=== PATIENT | male | born 1955 | race Caucasian/White ===

== ENCOUNTER 2021-04-25 10:52 | Day surgery (SDC) | payer OTHER ==
--- NOTE | 2021-04-25 09:13 | HP ---
DATE OF SURGERY: 04/25/2021 HISTORY OF PRESENT ILLNESS: The patient is a 66-year-old last colonoscopy six or seven years ago and had polyps. The patient has blood in his stools and he had some hemorrhoids not on a regular basis and not currently. He has problems with constipation and loose stools. Family history negative for colon cancer. He has had history of polyps. He is in need of screening colonoscopy. PAST MEDICAL HISTORY: Diabetes mellitus type II, chronic obstructive pulmonary disease, hypertension. PAST SURGICAL HISTORY: Left shoulder. Right knee. MEDICATIONS: Metformin, Cris, atorvastatin, lisinopril, levobunolol drops in his eyes. Ventolin HFA PRN. ALLERGIES: IBUPROFEN. FAMILY HISTORY: Lung cancer. Heart disease. Negative for colon cancer. SOCIAL HISTORY: Half pack per day smoker, does drink some alcohol. REVIEW OF SYSTEMS: Fourteen systems reviewed. Negative or noncontributory as above and per preadmission questionnaire. No chest pain or palpitations. PHYSICAL EXAMINATION: GENERAL: No acute distress. HEENT: Sclerae nonicteric. NECK: No JVD. CHEST: Equal excursion, nonlabored breathing. CVS: Regular rate and rhythm. ABDOMEN: Soft. No peritoneal signs. Mild tenderness to right upper quadrant. EXTREMITIES: No significant edema. NEURO: Alert, oriented, moving extremities symmetrically. No gross motor deficits noted. PSYCH: Appropriate mood and affect. IMPRESSION: A patient with history of polyps in the past. Last colonoscopy six or seven years ago. He is in need of follow up screening colonoscopy. He also had HIDA scan. He had some vague upper left quadrant ache. I feel he will benefit from screening colonoscopy. Risks and benefits explained in detail including but not limited to bleeding or infection, risk of bowel injury or perforation possibly requiring open procedure, risk of missed or nondiagnosis or incomplete exam possibly requiring barium enema, other studies or procedures, general risk of anesthesia or sedation, risk of bowel prep but not limited to, consent obtained. Will proceed with outpatient follow up screening colonoscopy given his history of polyps in the past.
[2021-04-25] MEDS ORDERED: Lactated Ringers 1,000 ML IV ONE (11:07)
[2021-04-25] MEDS ORDERED: Lactated Ringers 1,000 ML IV SCH (11:30)
[2021-04-25] MEDS ORDERED: DIPRIVAN 200 MG/20 ML IV ONE (11:56)
[2021-04-25 13:26] VITALS: BP 153/83; PULSE 76; O2SAT 97
--- NOTE | 2021-04-26 08:20 | OP ---
SURGERY DATE/TIME: 04/25/2021 1234 PREOPERATIVE DIAGNOSIS: History of polyps, need for follow up screening colonoscopy. POSTOPERATIVE DIAGNOSES: 1) ASA Class III. 2) Withdrawal time 12 minutes. 3) Fair but limited bowel prep (fair amount of liquidy stool). 4) Pancolonic mild, small diverticulosis. 5) Polyps ascending, transverse, rectosigmoid and rectum. PROCEDURES: 1) Colonoscopy to cecum. 2) Hot snare polypectomy of two polyps proximal ascending colon removed with hot snare polypectomy with brief bursts of cautery. 3) Hot snare polypectomy of small transverse colon polyp about 4 mm in size. 4) Hot biopsy polypectomy small early polyp versus hyperplastic lesion rectosigmoid x6 and rectum x4. SURGEON: Dr. Isidoro Denney. ANESTHESIA: MAC. ESTIMATED BLOOD LOSS: Minimal. INDICATIONS: As noted above. Risks and benefits explained in detail but not limited to and consent obtained. DESCRIPTION OF PROCEDURE AND FINDINGS: The patient is taken to the endoscopy room. MAC anesthesia induced. After official time out and no disagreement with planned procedure, digital rectal exam did not reveal any rectal masses. Video colonoscope inserted and passed up through the tortuous sigmoid, descending, transverse and ascending colon around to the cecum. Appendiceal orifice and valve well visualized, photo documented. There are polyps 5 or 6 mm in size removed with hot snare polypectomy and brief bursts of cautery. Good hemostasis noted. This is removed with a snare that slipped a little bit but second snare of the area was accomplished. It appeared to be removed in total. There is another smaller, 3 to 3.5 mm polyp removed with hot snare polypectomy also in the proximal transverse colon. Good hemostasis noted. The scope pulled back. There were a few small diverticula in the ascending colon. The scope is pulled back to the transverse colon. Small 4 mm polyp removed with hot snare polypectomy with brief bursts of cautery. Good hemostasis noted. The scope is pulled back through to the rectosigmoid colon. There were six small, smooth appearing hyperplastic appearing type polyps removed with hot biopsy forceps with brief bursts of cautery. Good hemostasis noted. Four small early polyps in the rectum removed with hot biopsy forceps. These appeared to be hyperplastic in nature as well. Good hemostasis noted. The scope is withdrawn. The patient tolerated the procedure well. Withdrawal time had been around 12 minutes. Findings discussed with the family out in the waiting area. I will see him back in the office next week to go over the path results.
== END 2021-04-25 13:35 | disposition home or self-care (01) ==
LOC: SDC 10:52
PROVIDERS: ATTEND Surgery
DX: Z09 Encounter for follow-up examination after completed treatment for conditions other than malignant neoplasm (principal); Z86.010 Personal history of colon polyps; E11.9 Type 2 diabetes mellitus without complications; K57.30 Diverticulosis of large intestine without perforation or abscess without bleeding; D12.2 Benign neoplasm of ascending colon; D12.4 Benign neoplasm of descending colon; D12.7 Benign neoplasm of rectosigmoid junction; D12.3 Benign neoplasm of transverse colon
CPT/HCPCS: 82947; 88305; J2704

== ENCOUNTER 2022-09-09 12:13 | Emergency (ER) | payer MEDICARE ==
[2022-09-09] MEDS ORDERED: BABY ASPIRIN 81 MG CHEW PO ONE (12:16)
[2022-09-09] MEDS ORDERED: MORPHINE SULFATE 4 MG INJ IV ONE ×2 (12:16→14:17)
[2022-09-09] MEDS ORDERED: Nitrostat 0.4 MG (ED) SL ONE ×2 (12:16→12:37)
[2022-09-09] MEDS ORDERED: Sodium Chloride 0.9% 1000 ML 1,000 ML IV SCH (12:30)
[2022-09-09] MEDS ORDERED: MORPHINE SULFATE 4 MG INJ ONE ×2 (12:37→14:27)
[2022-09-09] MEDS ORDERED: Sodium Chloride 0.9% 1000 ML 1,000 ML ONE (12:37)
[2022-09-09] MEDS ORDERED: BABY ASPIRIN 81 MG CHEW ONE (12:37)
--- NOTE | 2022-09-09 12:40 | ERPHSYRPT ---
- History of Present Illness Time Seen by Provider: 09/09/22 12:35 Historian: patient, family Exam Limitations: no limitations Patient Subjective Stated Complaint: Pt c/o of chest discomfort and shortness of breath that has been coming on over the last 7-8 days Triage Nursing Assessment: Pt brought self to the ER, hypertensive, tachycardic, has chest pressure rated at 2/10, anca lower leg edema, feels like something compresses his chest when he wakes up at night, dry non productive cough occassionally, skin n/w/d, bounding pulses Physician History: Pt c/o of chest discomfort and shortness of breath that has been coming on over the last 7-8 days Pt brought self to the ER, hypertensive, tachycardia, has chest pressure rated at 2/10, both lower leg edema, feels like something compresses his chest when he wakes up at night, dry non productive cough occasionally, Timing/Duration: day(s) (7-8 days) Quality: aching Location: substernal Chest Pain Radiation: no radiation Severity of Pain-Max: moderate Severity of Pain-Current: moderate Modifying Factors: Improves With: nothing Associated Symptoms: shortness of breath, cough, hurts to breathe, edema Prior Chest Pain/Cardiac Workup: no prior cardiac workup Nitro Today/Relief: no nitro taken today Aspirin Treatment Today: 81 mg x 1 Allergies/Adverse Reactions: ibuprofen Allergy (Severe, Verified 09/09/22 12:31) Itching hands itch Home Medications: Atorvastatin Calcium [Lipitor] 10 mg PO DAILY 07/19/12 [History] Fexofenadine HCl [Cris] 180 mg PO BID 07/19/12 [History] Metformin HCl 500 mg [Glucophage 500 MG] 500 mg PO BID 07/19/12 [History] Albuterol 8 gm Mdi Hfa [Ventolin Hfa MDI] 1 puff IH DAILY PRN PRN 03/18/19 [History] Levobunolol HCl [Betagan] 1 drop OP BID 03/18/19 [History] Hx Influenza Vaccination/Date Given: (fall 2011) Hx Pneumococcal Vaccination/Date Given: No Travel Risk - International Travel Have you traveled outside of the country in past 3 weeks: No - Coronavirus Screening Are you exhibiting any of the following symptoms?: No Close contact with a COVID-19 positive Pt in past 14-21 Days: No - Vaccine Status Have 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 - Vaccination Dates Date of 2cond Vaccination (if applicable): 2020 - Review of Systems Constitutional: No Fever, No Chills Eyes: No Symptoms Ears, Nose, & Throat: No Symptoms Respiratory: Cough, Dyspnea, Dyspnea on Exertion (CUMMINS) Cardiac: Chest Pain, Edema, Palpitations, Orthopnea, PND, No Syncope Abdominal/Gastrointestinal: No Abdominal Pain, No Nausea, No Vomiting, No Diarrhea Genitourinary Symptoms: No Dysuria Musculoskeletal: No Back Pain, No Neck Pain Skin: No Rash Neurological: No Dizziness, No Focal Weakness, No Sensory Changes Psychological: No Symptoms Endocrine: No Symptoms All Other Systems: Reviewed and Negative - Past Medical History Pertinent Past Medical History: Yes Neurological History: No Pertinent History ENT History: No Pertinent History Cardiac History: No Pertinent History, High Cholesterol, Hypertension Respiratory History: COPD Endocrine Medical History: Diabetes Type II Musculoskeletal History: Fractures GI Medical History: No Pertinent History History: No Pertinent History Psycho-Social History: No Pertinent History Male Reproductive Disorders: No Pertinent History Other Medical History: KNEE PN; SX ON R KNEE - ACL RECONSTRUCTION - Past Surgical History Past Surgical History: Yes Neuro Surgical History: No Pertinent History Cardiac: No Pertinent History Respiratory: No Pertinent History Gastrointestinal: No Pertinent History Genitourinary: No Pertinent History Musculoskeletal: Orthopedic Surgery Male Surgical History: No Pertinent History Other Surgical History: right knee ligament reattachment. left shoulder rotator cuff,colonoscopy times 2, - Social History Smoking Status: Current every day smoker How long have you smoked: age 20 Exposure to second hand smoke: Yes Drug Use: none Patient Lives Alone: No - Nursing Vital Signs Nursing Vital Signs: Initial Vital Signs Temperature 98.2 F 09/09/22 12:15 Pulse Rate 110 H 09/09/22 12:15 Respiratory Rate 25 H 09/09/22 12:15 Blood Pressure 143/99 09/09/22 12:15 O2 Sat by Pulse Oximetry 97 09/09/22 12:15 Pain Scale Pain Intensity 3 - Physical Exam General Appearance: no apparent distress, alert Eye Exam: PERRL/EOMI, eyes nml inspection Ears, Nose, Throat Exam: normal ENT inspection, moist mucous membranes Neck Exam: normal inspection, non-tender, supple, full range of motion Respiratory Exam: diminished breath sounds, wheezing, No respiratory distress Cardiovascular Exam: tachycardia Gastrointestinal/Abdomen Exam: soft, No tenderness, No mass Back Exam: normal inspection, No CVA tenderness, No vertebral tenderness Extremity Exam: normal inspection, normal range of motion Neurologic Exam: alert, oriented x 3, cooperative, normal mood/affect, sensation nml, No motor deficits Skin Exam: normal color, warm, dry SpO2: 97 - Course Nursing assessment & vital signs reviewed: Yes EKG Interpreted by Me: Non-specific ST Changes Rhythm Strip: Sinus Tachycardia - Radiology Exams Chest X-ray Interpretation: Reviewed by me (intertitial lung disease, COPD changes) Ordered Tests: Active Orders 24 hr Category Date Time Status EKG-ER Only STAT Care 09/09/22 12:16 Active IV Insertion STAT Care 09/09/22 12:16 Completed CHEST 2 VIEWS (PA AND LAT) Stat Exams 09/09/22 12:16 Taken CHEST WITH CONTRAST [CT] Stat Exams 09/09/22 13:05 Completed CHEST WITHOUT CONTRAST [CT] Stat Exams 09/09/22 13:05 Completed CBC W DIFF Stat Lab 09/09/22 12:40 Completed CMP Stat Lab 09/09/22 12:40 Completed D-DIMER QUANTITATIVE Stat Lab 09/09/22 12:40 Completed NT PRO BNPII Stat Lab 09/09/22 12:40 Completed TROPONIN Q4H Lab 09/09/22 12:40 Completed TROPONIN Q4H Lab 09/09/22 14:36 Received TROPONIN Q4H Lab 09/09/22 20:30 Ordered Medication Summary Generic Name Dose Route Start Last Admin Trade Name Freq PRN Reason Stop Dose Admin Sodium Chloride 1,000 mls @ 100 mls/hr 09/09/22 12:30 09/09/22 12:39 Sodium Chloride 0.9% 1000 Ml IV 10/09/22 12:29 100 mls/hr .Q10H QUE Administration Discontinued Medications Generic Name Dose Route Start Last Admin Trade Name Freq PRN Reason Stop Dose Admin Amiodarone HCl 150 mg 09/09/22 14:17 09/09/22 14:20 Amiodarone Hcl 150 Mg/3 Ml Vial IV 09/09/22 14:18 150 mg STAT ONE Administration Amiodarone HCl Confirm 09/09/22 14:16 Amiodarone Hcl 150 Mg/3 Ml Vial Administered 09/09/22 14:17 Dose 150 mg .ROUTE .STK-MED ONE Aspirin 81 mg 09/09/22 12:16 09/09/22 12:40 Aspirin 81 Mg Tab.Chew PO 09/09/22 12:17 81 mg STAT ONE Administration Aspirin Confirm 09/09/22 12:37 Aspirin 81 Mg Tab.Chew Administered 09/09/22 12:38 Dose 324 mg .ROUTE .STK-MED ONE Furosemide 20 mg 09/09/22 13:32 09/09/22 13:45 Furosemide 20 Mg/Vial IV 09/09/22 13:33 20 mg ONCE ONE Administration Furosemide Confirm 09/09/22 13:44 Furosemide 20 Mg/Vial Administered 09/09/22 13:45 Dose 20 mg .ROUTE .STK-MED ONE Dextrose Confirm 09/09/22 14:21 D5w 100ml Mini Bag 100 Ml Administered 09/09/22 14:22 Dose 100 mls @ ud IV .STK-MED ONE Amiodarone HCl/Dextrose Confirm 09/09/22 14:46 Nexterone 360 Mg/200 Ml Bag Administered 09/09/22 14:47 Dose 360 mg in 200 mls @ ud IV .STK-MED ONE Morphine Sulfate 4 mg 09/09/22 12:16 09/09/22 12:39 Morphine Sulfate 4 Mg/Ml Injection IV 09/09/22 12:17 4 mg STAT ONE Administration Morphine Sulfate Confirm 09/09/22 12:37 Morphine Sulfate 4 Mg/Ml Injection Administered 09/09/22 12:38 Dose 4 mg .ROUTE .STK-MED ONE Morphine Sulfate 4 mg 09/09/22 14:17 09/09/22 14:27 Morphine Sulfate 4 Mg/Ml Injection IV 09/09/22 14:18 4 mg STAT ONE Administration Morphine Sulfate Confirm 09/09/22 14:27 Morphine Sulfate 4 Mg/Ml Injection Administered 09/09/22 14:28 Dose 4 mg .ROUTE .STK-MED ONE Nitroglycerin 0.4 mg 09/09/22 12:16 09/09/22 12:40 Nitroglycerin 0.4 Mg (Ed) 0.4 Mg Tab.Subl SL 09/09/22 12:17 0.4 mg STAT ONE Administration Nitroglycerin Confirm 09/09/22 12:37 Nitroglycerin 0.4 Mg (Ed) 0.4 Mg Tab.Subl Administered 09/09/22 12:38 Dose 0.4 mg SL .STK-MED ONE Lab/Rad Data: Laboratory Result Diagrams 09/09/22 12:40 09/09/22 12:40 Laboratory Results 09/09/22 09/09/22 09/09/22 Range/Units 12:40 12:40 12:40 WBC (4.0-10.5) x10^3/uL RBC (4.1-5.6) x10^6/uL Hgb (12.5-18.0) g/dL Hct (42-50) % MCV (78-100) fL MCH (26-32) pg MCHC (32-36) g/dL RDW (11.5-14.0) % Plt Count (150-450) x10^3/uL MPV (7.5-11.0) fL Gran % (36.0-66.0) % Immature Gran % (Auto) (0.00-0.4) % Nucleat RBC Rel Count (0.00-0.1) % Eos # (Auto) (0-0.5) x10^3/uL Immature Gran # (Auto) (0.00-0.03) x10^3u/L Absolute Lymphs (auto) (1.0-4.6) x10^3/uL Absolute Monos (auto) (0.0-1.3) x10^3/uL Absolute Nucleated RBC (0.00-0.01) x10^3u/L Lymphocytes % (24.0-44.0) % Monocytes % (0.0-12.0) % Eosinophils % (0.00-5.0) % Basophils % (0.0-0.4) % Absolute Granulocytes (1.4-6.9) x10^3/uL Basophils # (0-0.4) x10^3/uL D-Dimer 1.02 H* (0.0-0.50) mg/L Sodium 142 (137-145) mmol/L Potassium 4.2 (3.5-5.1) mmol/L Chloride 105 (98-107) mmol/L Carbon Dioxide 27 (22-30) mmol/L Anion Gap 13.8 (5-15) MEQ/L BUN 18 (9-20) mg/dL Creatinine 0.83 (0.66-1.25) mg/dL Estimated GFR > 60.0 ML/MIN Glucose 108 H (74-106) mg/dL Calcium 9.2 (8.4-10.2) mg/dL Total Bilirubin 0.70 (0.2-1.3) mg/dL AST 53 (17-59) U/L ALT 75 H (0-50) U/L Alkaline Phosphatase 90 (38-126) U/L Troponin I 0.058 H* (0.000-0.034) ng/mL NT-Pro-B Natriuret Pep 9610 (<300) pg/mL Serum Total Protein 6.8 (6.3-8.2) g/dL Albumin 3.9 (3.5-5.0) g/dL 09/09/22 Range/Units 12:40 WBC 8.7 (4.0-10.5) x10^3/uL RBC 4.31 (4.1-5.6) x10^6/uL Hgb 14.1 (12.5-18.0) g/dL Hct 42.3 (42-50) % MCV 98.1 (78-100) fL MCH 32.7 H (26-32) pg MCHC 33.3 (32-36) g/dL RDW 13.2 (11.5-14.0) % Plt Count 261 (150-450) x10^3/uL MPV 11.1 H (7.5-11.0) fL Gran % 73.8 H (36.0-66.0) % Immature Gran % (Auto) 0.3 (0.00-0.4) % Nucleat RBC Rel Count 0.0 (0.00-0.1) % Eos # (Auto) 0.28 (0-0.5) x10^3/uL Immature Gran # (Auto) 0.03 (0.00-0.03) x10^3u/L Absolute Lymphs (auto) 1.08 (1.0-4.6) x10^3/uL Absolute Monos (auto) 0.86 (0.0-1.3) x10^3/uL Absolute Nucleated RBC 0.00 (0.00-0.01) x10^3u/L Lymphocytes % 12.5 L (24.0-44.0) % Monocytes % 9.9 (0.0-12.0) % Eosinophils % 3.2 (0.00-5.0) % Basophils % 0.3 (0.0-0.4) % Absolute Granulocytes 6.37 (1.4-6.9) x10^3/uL Basophils # 0.03 (0-0.4) x10^3/uL D-Dimer (0.0-0.50) mg/L Sodium (137-145) mmol/L Potassium (3.5-5.1) mmol/L Chloride (98-107) mmol/L Carbon Dioxide (22-30) mmol/L Anion Gap (5-15) MEQ/L BUN (9-20) mg/dL Creatinine (0.66-1.25) mg/dL Estimated GFR ML/MIN Glucose (74-106) mg/dL Calcium (8.4-10.2) mg/dL Total Bilirubin (0.2-1.3) mg/dL AST (17-59) U/L ALT (0-50) U/L Alkaline Phosphatase (38-126) U/L Troponin I (0.000-0.034) ng/mL NT-Pro-B Natriuret Pep (<300) pg/mL Serum Total Protein (6.3-8.2) g/dL Albumin (3.5-5.0) g/dL Name: ZACH ESCALANTE Attending Physician: IRASEMA LOMAS IMAGING REPORT : 1955 Age: 67 Sex: M Location: ED Report #: [id number] Exam Date: 09/09/22 Status: [facility] Radiology #: Procedures: [id number] CT/CHEST WITHOUT CONTRAST CLINICAL HISTORY:shortness of breath COMPARISON:None; TECHNIQUES:Contiguous thin axial CT images of the chest were acquired without administration of intravenous contrast. Coronal and sagittal reconstructions were obtained. CTDI: 5.98 mGy, DLP: 237.5 mGy*cm; FINDINGS: Normal configuration and density of the thyroid gland. Normal density of the lung parenchyma apart from gravitational bilateral posterior basal ground glass veiling. Reticular interstitial pattern seen in both lower lung lobes. No evident pulmonary consolidations. Calcified nodule seen in the right lower lobe measuring about [address] appearance of the mediastinal fat planes. Multiple mediastinal and hilar lymph nodes are noted, some of which is densely calcified, largest calcified lymph node seen in subcarinal region 13 x 21 mm. Mild bilateral pleural effusion. No pleural thickening or masses. Mild atherosclerotic changes of thoracic aorta. Mildly enlarged cardiac size. Normal bony thoracic cage. IMPRESSION: 1. Mild cardiomegaly. Reticular interstitial pattern seen in both lower lung lobes with subpleural groundglass attenuation, probably due to evolving pulmonary edema versus post-infectious changes. Further cardiac evaluation is recommended. 2. Mild bilateral pleural effusion. 3. Rest of the findings are as described. CT/CHEST WITH CONTRAST CLINICAL HISTORY:shortness of breath COMPARISON:None; TECHNIQUES:Contiguous thin axial CT images of the chest were acquired with administration of intravenous contrast. Coronal and sagittal reconstructions were obtained. DLP: 601.6 mGy*cm, CTDI: 53 mGy; FINDINGS: Normal caliber of the pulmonary trunk, yet dislated main right (32 mm) and left branches (29 mm) noted. Adequate contrast filling of the pulmonary artery and its branches down to 3rd order branches. No evident filling defects. Normal density of the lung parenchyma. No pulmonary consolidations. Calcified nodule seen in the right lower lobe measuring about 5 mm. Normal configuration of the thoracic aorta. Mild bilateral pleural effusion. Mildly enlarged cardiac size with dilatation of left atrium and left ventricle, for echocardiography. Normal bony thoracic cage. Abdominal cuts are unremarkable. IMPRESSION: 1. No radiological evidence of PE at time of examination. 2. Picture suggesting pulmonary hypertension. 3. Mild cardiomegaly, for echocardiography. 4. Mild bilateral pleural effusion. - Progress Progress: re-examined, unchanged Air Movement: fair Progress Note: 09/09/22 14:29 During emergency department course patient did develop some ventricular tachycardia around 8-10 beats. Amiodarone 150 mg IV given. Patient troponin is also elevated at 0.058 normal range is 0.034. Patient D-dimer is also elevated 1.5 normal range is 0.34. Patient also has elevated proBNP which is 9600 normal range is around 300. Patient chest x-ray showing interstitial changes with some bilateral mild pleural effusion. Intravenous furosemide 20 mg also given which did help patient diuresing. Emergency room physician at [facility] was contacted all the information's were given. He accepted patient. We do not have [facility] ambulance available at this point of time but we do have a basic ambulance available due to emergency transfer required we will send the nurse with the patient in the ambulance. Patient CAT scan with and without contrast was also done and the results were pending at the time of transfer. 09/09/22 14:45 Patient continues to have a few runs of V. tach so amiodarone drip 100 mg/h started while patient is getting ready for transfer via ambulance. Blood Culture(s) Obtained: No Antibiotics given: No Discussed with Dr.: Other (ER Physician at [facility] ) Counseled pt/family regarding: drug and/or alcohol abuse, lab results, diagnosis, need for follow-up, rad results, smoking cessation Medical Desision Making - Independent Historian Additional History obtained from: Spouse - External Record(s) Reviewed Records reviewed as a part of evaluation & management: Clinic - Discussion of managment Care discussed with:: on-call "doc" Reviewed:: Test results, Need for additional workup Agreed on:: Treatment plan, need for follow-up, decision to admit Will see patient: in ED - Diagnostic Testing Diagnostic test were ordered, analyzed, and reviewed by me: Yes Radiological Interpretation: Reviewed by me, Teleradiologist Report - Risk of complications The pt has a high risk of morbidity or mortality based on: Decision regarding hospitilization or escalation of hosp level of care - Departure Departure Disposition: Transfer ([facility] ER) Clinical Impression: Ventricular tachycardia by electrocardiogram, Elevated troponin, Elevated d- dimer Condition: Fair Critical Care Time: Yes Critical Care Time(excluding separately billable procedures): Critical 30-74 mins Referrals: YVES PERALES MD [Primary Care Provider] - Follow up/PCP as directed
[2022-09-09 12:46] LABS: Absolute Neutrophil Ct (ANC) 6.37 x10^3/uL (1.4-6.9); BASOPHIL % 0.3 % (0.0-0.4); Basophil (Absolute #) 0.03 x10^3/uL (0-0.4); Eosinophil % 3.2 % (0.00-5.0); Eosinophil (Absolute #) 0.28 x10^3/uL (0-0.5); Hematocrit 42.3 % (42-50); Hemoglobin 14.1 g/dL (12.5-18.0); IMMATURE GRAN # 0.03 x10^3u/L (0.00-0.03); IMMATURE GRAN % 0.3 % (0.00-0.4); Lymphocyte (Absolute #) 1.08 x10^3/uL (1.0-4.6); Lymphocytes % 12.5 % (24.0-44.0); Mean Cell Volume 98.1 fL (78-100); Mean Corpuscular Hemoglobin 32.7 pg (26-32); Mean Corpuscular Hgb Concent. 33.3 g/dL (32-36); Mean Platelet Volume 11.1 fL (7.5-11.0); Monocyte (Absolute #) 0.86 x10^3/uL (0.0-1.3); Monocytes % 9.9 % (0.0-12.0); Neutrophil % 73.8 % (36.0-66.0); Platelet Count 261 x10^3/uL (150-450); Red Blood Count 4.31 x10^6/uL (4.1-5.6); Red Cell Distribution Width 13.2 % (11.5-14.0); White Blood Count 8.7 x10^3/uL (4.0-10.5)
[2022-09-09 13:12] LABS: ALBUMIN 3.9 g/dL (3.5-5.0); ALKALINE PHOSPHATASE 90 U/L (38-126); ANION GAP 13.8 MEQ/L (5-15); BLOOD UREA NITROGEN 18 mg/dL (9-20); CHLORIDE 105 mmol/L (98-107); Calcium 9.2 mg/dL (8.4-10.2); Carbon Dioxide 27 mmol/L (22-30); Creatinine 1 0.83 mg/dL (0.66-1.25); EST GLOMERULAR FILTRATION RATE > 60.0 ML/MIN; Glucose 108 mg/dL (74-106); NT PRO BNPII 9610 pg/mL (<300); Potassium 4.2 mmol/L (3.5-5.1); SGOT/AST 53 U/L (17-59); SGPT/ALT 75 U/L (0-50); SODIUM 142 mmol/L (137-145); Total Protein 6.8 g/dL (6.3-8.2)
[2022-09-09] MEDS ORDERED: Lasix 20 MG/2 ML IV ONE (13:32)
[2022-09-09 13:34] VITALS: PULSE 103
[2022-09-09] MEDS ORDERED: Lasix 20 MG/2 ML ONE (13:44)
[2022-09-09 13:53] VITALS: O2SAT 97
[2022-09-09] MEDS ORDERED: Cordarone 150 MG/3 ML Injection ONE (14:16)
[2022-09-09] MEDS ORDERED: Cordarone 150 MG/3 ML Injection IV ONE (14:17)
[2022-09-09] MEDS ORDERED: D5w 100ML Mini Bag 100 ML 100 ML IV ONE (14:21)
[2022-09-09] MEDS ORDERED: NEXTERONE 360 MG/200 ML BAG 360 MG/200 ML PLAST..BAG IV ONE (14:46)
--- NOTE | 2022-09-09 14:55 | XRAY ---
CLINICAL HISTORY:shortness of breath COMPARISON:None; TECHNIQUES:Contiguous thin axial CT images of the chest were acquired without administration of intravenous contrast. Coronal and sagittal reconstructions were obtained. CTDI: 5.98 mGy, DLP: 237.5 mGy*cm; FINDINGS: Normal configuration and density of the thyroid gland. Normal density of the lung parenchyma apart from gravitational bilateral posterior basal ground glass veiling. Reticular interstitial pattern seen in both lower lung lobes. No evident pulmonary consolidations. Calcified nodule seen in the right lower lobe measuring about [address] appearance of the mediastinal fat planes. Multiple mediastinal and hilar lymph nodes are noted, some of which is densely calcified, largest calcified lymph node seen in subcarinal region 13 x 21 mm. Mild bilateral pleural effusion. No pleural thickening or masses. Mild atherosclerotic changes of thoracic aorta. Mildly enlarged cardiac size. Normal bony thoracic cage. IMPRESSION: 1. Mild cardiomegaly. Reticular interstitial pattern seen in both lower lung lobes with subpleural groundglass attenuation, probably due to evolving pulmonary edema versus post-infectious changes. Further cardiac evaluation is recommended. 2. Mild bilateral pleural effusion. 3. Rest of the findings are as described. Electronically Signed by: Mamadou Arriaza MD. (09/09/2022 13:51:19 BEHAVIORAL HEALTH CASE MANAGER)
--- NOTE | 2022-09-09 14:57 | XRAY ---
CLINICAL HISTORY:shortness of breath COMPARISON:None; TECHNIQUES:Contiguous thin axial CT images of the chest were acquired with administration of intravenous contrast. Coronal and sagittal reconstructions were obtained. DLP: 601.6 mGy*cm, CTDI: 53 mGy; FINDINGS: Normal caliber of the pulmonary trunk, yet dislated main right (32 mm) and left branches (29 mm) noted. Adequate contrast filling of the pulmonary artery and its branches down to 3rd order branches. No evident filling defects. Normal density of the lung parenchyma. No pulmonary consolidations. Calcified nodule seen in the right lower lobe measuring about 5 mm. Normal configuration of the thoracic aorta. Mild bilateral pleural effusion. Mildly enlarged cardiac size with dilatation of left atrium and left ventricle, for echocardiography. Normal bony thoracic cage. Abdominal cuts are unremarkable. IMPRESSION: 1. No radiological evidence of PE at time of examination. 2. Picture suggesting pulmonary hypertension. 3. Mild cardiomegaly, for echocardiography. 4. Mild bilateral pleural effusion. Electronically Signed by: Mamadou Arriaza MD. (09/09/2022 13:53:31 [employer]NCE TRUCK INSTALLATION MECHANIC)
[2022-09-09 15:29] VITALS: BP 147/94
--- NOTE | 2022-09-09 20:23 | XRAY ---
Indication: Chest pain. Comparison: None PA/lateral chest hyperinflated with mild bibasilar subsegmental atelectasis/scarring. Upper lungs clear. Heart borderline enlarged with small subcarinal calcified node. Bony thorax intact with osteopenia and mild degenerative changes. Impression: Nonacute hyperinflated chest with chronic features.
== END 2022-09-09 14:00 | disposition short-term general hospital (02) ==
LOC: ED 12:13
DX: I47.20 Ventricular tachycardia, unspecified (principal); R77.8 Other specified abnormalities of plasma proteins; R79.1 Abnormal coagulation profile; R07.9 Chest pain, unspecified; R06.02 Shortness of breath; E78.5 Hyperlipidemia, unspecified; I10 Essential (primary) hypertension; E11.9 Type 2 diabetes mellitus without complications; Z79.84 Long term (current) use of oral hypoglycemic drugs; Z79.899 Other long term (current) drug therapy; Z72.0 Tobacco use
CPT/HCPCS: 36000; 36415; 71046; 71250; 71260; 80053; 83880; 84484; 85025; 85379; 93005; 96374; 96375; 96376; 99285; 99291; J0282; J1940; J2270; A9270-GY

== ENCOUNTER 2024-12-15 15:14 | Emergency (ER) | payer MEDICARE ==
--- NOTE | 2024-12-15 15:35 | ERPHSYRPT ---
- History of Present Illness Time Seen by Provider: 12/15/24 15:35 Source: patient, family Exam Limitations: no limitations Physician History: This is a 69-year-old white male patient who presents to the emergency department private vehicle accompanied by his spouse with worsening left hip and left leg pain that shoots posteriorly sharp burning pain to the level of the knee. There is no acute traumatic injury or fall. Patient does a lot of lifting, bending, twisting at his work and he works long hours. He has had a history of sciatica in the past. Patient has a history of hyperlipidemia, seasonal allergies, diabetes and COPD. He does not have numbness in his feet or toes. He does not have urinary incontinence. He has no bowel incontinence. He has no constipation symptoms. Timing/Duration: yesterday, worse Occured at: other (No injury) Context: bending, lifting, twisted Quality: burning, sharpness Hip Pain Location: hip (L) Severity of Pain-Max: moderate Severity of Pain-Current: moderate Modifying Factors: Improves With: movement Symptoms prior to fall: none Allergies/Adverse Reactions: ibuprofen Allergy (Severe, Verified 12/15/24 15:49) Itching hands itch Home Medications: Atorvastatin Calcium [Lipitor] 80 mg PO DAILY 07/19/12 [History] Fexofenadine HCl [Cris] 180 mg PO DAILY 07/19/12 [History] Levobunolol HCl [Betagan] 1 drop OP BID 03/18/19 [History] Apixaban [Eliquis] 5 mg PO BID 12/15/24 [History] Atorvastatin Calcium 80 mg PO DAILY 12/15/24 [History] Carvedilol 12.5 mg [Coreg 12.5 mg] 12.5 mg PO BID 12/15/24 [History] Dapagliflozin Propanediol [Farxiga] 10 mg PO DAILY 12/15/24 [History] Fluticasone/Vilanterol [Breo Ellipta 100-25 Mcg Inhalr] 1 inh PO DAILY 12/15/24 [History] Furosemide 10 mg PO DAILY 12/15/24 [History] Sacubitril/Valsartan [Entresto 24 mg-26 mg Tablet] 1 tab PO BID 12/15/24 [History] Spironolactone 25 mg [Aldactone 25 MG] 12.5 mg PO DAILY 12/15/24 [History] Hx Influenza Vaccination/Date Given: (fall 2011) Hx Pneumococcal Vaccination/Date Given: No Travel Risk - International Travel Have you traveled outside of the country in past 3 weeks: No - Emerging Infectious Disease Are you exhibiting symptoms associated with any current EIDs: No - Review of Systems Constitutional: No Symptoms Eyes: No Symptoms Ears, Nose, & Throat: No Symptoms Respiratory: No Symptoms Cardiac: No Symptoms Abdominal/Gastrointestinal: No Symptoms Genitourinary Symptoms: No Symptoms Musculoskeletal: Back Pain (Low back pain with radiation of pain posteriorly and caudally) Skin: No Symptoms Neurological: No Symptoms Psychological: No Symptoms Endocrine: No Symptoms Hematologic/Lymphatic: No Symptoms Immunological/Allergic: No Symptoms All Other Systems: Reviewed and Negative - Past Medical History Pertinent Past Medical History: Yes Neurological History: No Pertinent History ENT History: No Pertinent History Cardiac History: No Pertinent History, High Cholesterol, Hypertension Respiratory History: COPD Endocrine Medical History: Diabetes Type II Musculoskeletal History: Fractures GI Medical History: No Pertinent History History: No Pertinent History Psycho-Social History: No Pertinent History Male Reproductive Disorders: No Pertinent History Other Medical History: KNEE PN; SX ON R KNEE - ACL RECONSTRUCTION - Past Surgical History Past Surgical History: Yes Neuro Surgical History: No Pertinent History Cardiac: No Pertinent History Respiratory: No Pertinent History Gastrointestinal: No Pertinent History Genitourinary: No Pertinent History Musculoskeletal: Orthopedic Surgery Male Surgical History: No Pertinent History Other Surgical History: right knee ligament reattachment. left shoulder rotator cuff,colonoscopy times 2, - Social History Smoking Status: Current every day smoker How long have you smoked: age 20 Exposure to second hand smoke: Yes Drug Use: none Patient Lives Alone: No - Nursing Vital Signs Nursing Vital Signs: Initial Vital Signs Temperature 97.3 F 12/15/24 15:40 Blood Pressure 116/66 12/15/24 15:40 Pain Scale Pain Intensity 6 - Physical Exam General Appearance: no apparent distress, alert, anxiety, thin Eye Exam: PERRL/EOMI, eyes nml inspection Ears, Nose, Throat Exam: normal ENT inspection, moist mucous membranes Neck Exam: normal inspection, non-tender, supple, full range of motion Respiratory Exam: airway intact, No chest tenderness, No respiratory distress Gastrointestinal Exam: No tenderness Rectal Exam: not done Back Exam: normal inspection, decreased range of motion, muscle spasm, No CVA tenderness, No vertebral tenderness Extremity Exam: normal inspection, normal range of motion, pelvis stable Neurologic Exam: alert, oriented x 3, cooperative, 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, normal mood/affect, nml cerebellar function, nml station & gait, sensation nml Skin Exam: normal color, warm, dry Lymphatic Exam: No adenopathy SpO2 Interpretation: normal O2 Delivery: Room Air - Course Nursing assessment & vital signs reviewed: Yes Ordered Tests: Active Orders 24 hr Category Date Time Status FEMUR Stat Exams 12/15/24 16:34 Completed Medication Summary Discontinued Medications Generic Name Dose Route Start Last Admin Trade Name Lisa PRN Reason Stop Dose Admin Methylprednisolone Sodium 0 mg 12/15/24 17:16 Succinate 125 mg/ Sterile IM 12/15/24 17:17 Water 2 ml STAT ONE Orphenadrine Citrate 60 mg 12/15/24 17:17 Orphenadrine Citrate 60 Mg/2 Ml Vial IM 12/15/24 17:18 STAT ONE - Progress Progress: improved, pain not gone completely, re-examined Progress Note: 12/15/24 17:23 My medical decision making and the assignment of low to moderate complexity of this patient's medical issue today is based on review of the patient's past medical history, reviewed the patient's medication list, reviewed patient drug allergy list, history of present illness and physical findings on examination. The workup in this patient includes a left hip and left femur x-ray. Differential diagnosis includes but is not limited to back spasm, acute exacerbation of chronic back pain, sciatica The preliminary report of the left femur and left hip x-ray shows no acute fracture or dislocation. The final report of the left femur and left hip x-ray was interpreted by the radiologist and I reviewed the impression. The pression states low lumbar degenerative changes. No new or acute findings/abnormalities Counseled pt/family regarding: diagnosis, need for follow-up, rad results Medical Desision Making - Independent Historian Additional History obtained from: Spouse - Diagnostic Testing Diagnostic test were ordered, analyzed, and reviewed by me: Yes Radiological Interpretation: Interpreted by me, Reviewed by me, Teleradiologist Report - Risk of complications Low Risk: Low risk of morbidity from additional dx testing or treatment The pt has a mod risk of morbidity or mortality based on: Need for prescription drug management - Departure Departure Disposition: Home Clinical Impression: Left sided sciatica Condition: Stable Critical Care Time: No Referrals: YVES PERALES MD [Primary Care Provider, [facility]] - Follow up/PCP as directed Additional Instructions: Avoid lifting bending twisting the next 48 hours. May apply lidocaine patch ([id number]) to the most tender area. Take your medications as prescribed. Monitor your blood glucose levels while taking the steroids. Call your primary care provider tomorrow, 12/16/2024, to make arrangements for follow- up appointment for further evaluation management. Prescriptions: Prednisone 10 mg [Deltasone 10 mg] 10 mg PO TID #12 tablet Orphenadrine Citrate 100 mg [Norflex 100 MG Tablet] 100 mg PO BID #10 tab
[2024-12-15 15:49] VITALS: BP 116/66; TEMP 97.3
--- NOTE | 2024-12-15 17:07 | XRAY ---
Indication: Pain. Comparison: None AP/lateral left femur demonstrates osteopenia, minimal hip/mild knee degenerative changes, and mild/moderate low lumbar degenerative spondylosis. No other bony, articular, or soft tissue abnormalities.
[2024-12-15] MEDS ORDERED: Sterile H2O 10 ml IJ ONE (17:32)
[2024-12-15] MEDS ORDERED: Norflex 60 MG/2 ML ONE (17:32)
[2024-12-15] MEDS: solu-MEDROL 125 MG, Sterile H2O 10 ml 2 ML IM ONE (17:34)
[2024-12-15] MEDS: Norflex 60 MG/2 ML IM ONE (17:34)
== END 2024-12-15 18:18 | disposition home or self-care (01) ==
LOC: ED 15:14
DX: M54.32 Sciatica, left side (principal); I10 Essential (primary) hypertension; E11.9 Type 2 diabetes mellitus without complications; Z79.01 Long term (current) use of anticoagulants; Z79.84 Long term (current) use of oral hypoglycemic drugs; Z79.899 Other long term (current) drug therapy; Z72.0 Tobacco use